=== PATIENT | female | born 1975 | race Caucasian/White ===

== ENCOUNTER 2018-04-03 17:16 | Emergency (ER) | payer OTHER ==
[~2018-04-03] VITALS: Ht 152.4 cm; Wt 73.0 kg
[2018-04-03] MEDS ORDERED: ACETAMINOPHEN 500 MG TABLET ONE (17:47)
[2018-04-03] MEDS ORDERED: SODIUM CHLORIDE 0.9% 1,000ML IVBOLUS ONE (18:00)
[2018-04-03] MEDS ORDERED: SODIUM CHLORIDE FLUSH 10ML SYR IVF ONE (18:00)
[2018-04-03] MEDS ORDERED: ACETAMINOPHEN 500 MG TABLET PO ONE (18:00)
[2018-04-03] MEDS ORDERED: PLEASE ENTER ALLERGIES MC SCH (18:00)
[2018-04-03 18:05] LABS: BASOPHILS # (AUTO) 0.01 x10^3/uL (0-0.1); BASOPHILS % (AUTO) 0 % (0-1); EOSINOPHILS # (AUTO) 0.07 x10^3/uL (0-0.4); EOSINOPHILS % (AUTO) 2 % (1-7); LYMPHOCYTES # (AUTO) 0.32 x10^3/uL (1-3.4); LYMPHOCYTES % (AUTO) 10 % (22-44); MD NO; MEAN CORPUSCULAR HEMOGLOBIN 29.7 pg (27.0-34.8); MEAN CORPUSCULAR HGB CONC 33.9 g/dL (32.4-35.8); MEAN CORPUSCULAR VOLUME 87.6 fL (80-100); MEAN PLATELET VOLUME 7.7 fL (7.4-10.4); MONOCYTES # (AUTO) 0.45 x10^3/uL (0.2-0.8); MONOCYTES % (AUTO) 14 % (2-9); NEUTROPHILS # (AUTO) 2.46 x10^3/uL (1.8-6.8); NEUTROPHILS % (AUTO) 74 % (42-75); PLATELET COUNT 205 x10^3/uL (130-400); RED BLOOD COUNT 4.58 x10^6/uL (3.82-5.3); RED CELL DISTRIBUTION WIDTH 13.8 % (9.6-15.2)
[2018-04-03 18:15] LABS: ALBUMIN 3.5 g/dL (3.4-5.0); ANION GAP 11 mmol/L (5-15); CALCIUM 8.7 mg/dL (8.5-10.1); CHLORIDE 101 mmol/L (98-107); CREATININE 0.88 mg/dL (0.55-1.02)
[2018-04-03] MEDS ORDERED: KETOROLAC 30 MG/1 ML IVPush ONE (18:30)
[2018-04-03 18:35] LABS: ALANINE AMINOTRANSFERASE 35 U/L (12-78)
[2018-04-03 18:37] LABS: ALKALINE PHOSPHATASE 57 U/L (45-117); BILIRUBIN,TOTAL 0.3 mg/dL (0.2-1.0); TOTAL PROTEIN 7.2 g/dL (6.4-8.2)
[2018-04-03 19:25] LABS: MICROSCOPIC NOT IND
[2018-04-03 19:28] LABS: CULTURE INDICATED? NO
[2018-04-03 20:15] VITALS: BP 121/72
[2018-04-04] MEDS ORDERED: INSU100V8 SQ (17:59)
[2018-04-04] MEDS ORDERED: METO25TA35 PO (18:00)
== END 2018-04-03 20:17 | disposition home or self-care (01) ==
LOC: ED 20:11
DX: R50.9 Fever, unspecified (principal); I10 Essential (primary) hypertension; E11.9 Type 2 diabetes mellitus without complications
CPT/HCPCS: 36415; 71045; 80053; 81003; 83605; 84145; 85025; 87040; 93005; 99285; J7030

== ENCOUNTER 2018-04-04 16:57 | Emergency (ER) | payer OTHER ==
[~2018-04-04] VITALS: Ht 152.4 cm; Wt 75.3 kg
[2018-04-04 17:03] VITALS: BP 124/89
[2018-04-04] MEDS ORDERED: INSU100V8 SQ (17:59)
[2018-04-04] MEDS ORDERED: METO25TA35 PO (18:00)
== END 2018-04-04 17:59 | disposition home or self-care (01) ==
LOC: ED 17:57
DX: T37.0X5A Adverse effect of sulfonamides, initial encounter (principal); L27.0 Generalized skin eruption due to drugs and medicaments taken internally; Y92.9 Unspecified place or not applicable; I10 Essential (primary) hypertension; E11.9 Type 2 diabetes mellitus without complications
CPT/HCPCS: 99283; J7512